=== PATIENT | female | born 1950 | race Caucasian/White ===

== ENCOUNTER → 2024-08-21 11:12 | Outpatient (BNVA) | payer SELFPAY | PROVIDERS: Visit Provider Nurse Practitioner Family | DX: I10 Essential (primary) hypertension (principal); R53.83 Other fatigue; E78.5 Hyperlipidemia, unspecified | CPT/HCPCS: 80053; 80061; 84443; 85025 ==

== ENCOUNTER 2024-09-19 12:26 | Outpatient (CLI) | payer MEDICARE, SELFPAY ==
--- NOTE | 2024-09-19 13:20 | MM_ITS ---
WS: [id number] Bilateral screening 3D tomosynthesis digital mammogram, 09/19/2024 12:52 PM Clinical Data: Z12.39 - Encounter for other screening for malignant neop... Comparison: None. Findings: No spiculated masses or clustered calcifications are seen. There are no secondary signs of carcinoma. The breasts show fibroglandular tissue. There are lymph nodes in the left axilla. MM/MM scr BI tomosynthesis [id number] Impression: Negative bilateral mammogram with no prior exam for review. Recommend annual screening mammograms. BIRADS: 1 - Negative. FOLLOW UP: 1 Year Follow-up DENSITY: There are scattered areas of fibroglandular density. The CAD cylinder checker was used
== END 2024-09-19 12:27 | disposition home or self-care (01) ==
LOC: RAD 12:29
PROVIDERS: Visit Provider Nurse Practitioner Family
DX: Z12.31 Encounter for screening mammogram for malignant neoplasm of breast (principal); R92.323 Mammographic fibroglandular density, bilateral breasts; R59.0 Localized enlarged lymph nodes
CPT/HCPCS: 77063; 77067

== ENCOUNTER 2024-10-26 09:06 | Observation (INO) | payer MEDICARE, SELFPAY ==
[2024-10-26] VITALS (14 sets, daily range): BP systolic 121–175; BP diastolic 66–91; PULSE 71–97; RESP 15–22; TEMP 36.3–37.1; O2SAT 98–100; BMI 29.0; BMI 29.7
--- NOTE | 2024-10-26 09:10 | ECG_ITS ---
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 Measurements Intervals [place] Rate: 85 P: 146 RI: 124 QRS: 148 QRSD: 124 T: 4 QT: 386 QTc: 460 Interpretive Statements SINUS RHYTHM RIGHT BUNDLE BRANCH BLOCK [120+ ms QRS DURATION, UPRIGHT V1, 40+ ms S IN I/aVL/V4/V5/V6] LEFT POSTERIOR FASCICULAR BLOCK [QRS AXIS > 109, INFERIOR Q] No previous ECG available for comparison Electronically Signed On 10-27-2024 13:08:42 CDT by Robbin Rader M.D. [id number]
--- NOTE | 2024-10-26 09:15 | XR_ITS ---
WS: [id number] Exam: XR chest 1V portable [id number] Date/Time of Exam: 10/26/2024 9:30 AM Reason For Exam: palpitations No priors. The lungs are fully expanded and clear. Normal cardiomediastinal silhouette. Regional bony elements appear normal. XR/XR chest 1V portable [id number] IMPRESSION: 1. Negative chest.
--- NOTE | 2024-10-26 09:42 | ED_ITS ---
HPI - Arrhythmia/Palpitations 2 General: Chief Complaint: Arrhythmia/Palpitations Stated Complaint: palpitations - weakness Time Seen by Provider: 10/26/24 09:11 History of Present Illness: 74-year-old female with a history of hyp erlipidemia and no other medical problems who presents emergency room after having an episode of severe weakness and palpitations this morning. She said overnight she had a couple small episodes of palpitations but when she went to the bathroom this morning she sat on the toilet and became so weak she could not get up. EMS reports her heart rate was in the 200s. They gave some diltiazem and now her heart rate is normalized and she is now symptom-free. She has no cardiac history. No A-fib history. Related Data Home Medications ?Medication ?Instructions ?Recorded ?Confirmed latanoprost (PF) 0.005 % eye drops 1 drp ophthalmic (e ye) QPM 10/26/24 10/26/24 in a dropperette Previous Rx's ?Medication ?Instructions ?Recorded atorvastatin 10 mg tablet (Lipitor) 10 mg PO DAILY #90 tabs 08/21/24 Allergies Allergy/AdvReac Type Severity Reaction Status Date / Time doxycycline Allergy Unknown Verified 08/21/24 10:26 Review of Systems 2 Narrative: Constitutional symptoms: Negative except as documented in HPI. Skin symptoms: Negative except as documented in HPI. Eye symptoms: Negative except as documented in HPI. ENMT symptoms: Negative except as documented in HPI. Respiratory symptoms: Negative except as documented in HPI. Cardiovascular symptoms: Negative except as documented in HPI. Gastrointestinal symptoms: Negative except as documented in HPI. Genitourinary symptoms: Negative except as documented in HPI. Musculoskeletal symptoms: Negative except as documented in HPI. Neurologic symptoms: Negative except as documented in HPI. Psychiatric symptoms: Negative except as documented in HPI. Endocrine symptoms: Negative except as documented in HPI. PFSH ED 2 PFSH: Medical History Hyperlipemia Family History Grandmother Cancer Sister Cancer Father Cancer Mother Diabetes mellitus, type 2 Hypertension Heart disease Brother Heart disease Social History Smoking and tobacco/nicotine status: never used tobacco/nicotine Alcohol intake: never Substance/Drug Use: never Adopted: No Caregiver/support person: No Lives independently: No Household members: family service: No Current occupational status: retired and disabled Do you think of yourself as: Straight/Heterosexual Current gender identity: Female Physical Exam 2 Narrative: EXAM NARRATIVE: General: Alert, no acute distress. Skin: Warm, dry. Head: Normocephalic, atraumatic. Neck: Supple, trachea midline. Eye: Extraocular movements are intact. Ears, nose, mouth and throat: mucosa moist. Cardiovascular: Regular, Normal peripheral perfusion. Respiratory: Lungs are clear to auscultation, respirations are non-labored, breath sounds are equal, Symmetrical chest wall expansion. Gastrointestinal: Soft, Nontender, Non distended Musculoskeletal: Normal ROM, no deformity. Neurological: Alert and oriented, No focal neurological deficit observed. Psychiatric: Cooperative, appropriate mood & affect. Course 2 Vital Signs: Vital signs: Vital Signs Temperature 98.7 F 10/26/24 09:08 Pulse Rate 74 10/26/24 13:30 Respiratory Rate 18 10/26/24 09:08 Blood Pressure 136/75 10/26/24 13:30 Pulse Oximetry 100 10/26/24 13:30 Oxygen Delivery Me thod Room Air 10/26/24 13:30 MDM - Arrhythmia/Palpitations Medical Decision Making Medical decision making: Differential diagnosis for patient presenting with generalized weakness including but not limited to and based on the above HPI, review of systems and physical exam: Sepsis. Dehydration. Renal failure. Electrolyte abnormalities. Anemia. Congestive heart failure. Hypotension. Coronary syndrome. Hepatitis. Cirrhosis. Infections such as pneumonia, urinary tract infection, Tick bourne illness, Cellulitis, Viral infections including influenza and Covid-19. Workup: labwork and lab/exam driven imaging ordered to evaluate, rule in and rule out above pathologies. EKG/cardiac monitoring in the field: Appears to be in atrial fibrillation with rapid ventricular response on EMS field tracing. See picture below. EKG: Time 9:10 AM. Rate 85. Normal sinus rhythm, No ST-T changes, no ectopy, left anterior fascicular block, right bundle branch block, This was reviewed and interpreted by myself the ER physician at 9:15 AM Lab Review: Laboratory results were reviewed and interpreted by myself the emergency room physician. Lab work is fairly unremarkable. Mild leukocytosis. No anemia. No renal failure. TSH is normal. No urinary tract infection. Initial troponin is negative. proBNP is mildly elevated at 305. I reviewed the patient's medical record. Reexamination: Patient has remained in sinus rhythm while she has been here. No syncope. No shortness of breath. No altered mental status. Consultation: I spoke with Dr. Rader who is on-call for cardiology. He recommends admission for echocardiogram and continue cardiac monitoring. As she has no previous history of atrial fibrillation. Consultation: I spoke with Dr. Cortez who is on-call for the hospitalist service who agrees to admission. Assessment and plan: New onset atrial fibrillation with A-fib with RVR Syncope -I discussed the patient with the hospitalist on-call who is admitting the patient. - Discussed findings and plan with patient. Answered any questions. - All laboratory values were reviewed and interpreted personally by myself, the ER physician - All imaging was reviewed and interpreted personally by myself, the ER physician. - Evaluation and treatment of this problem were appropriate in the emergency setting Lab Data 10/26/24 10:14 10/26/24 10:14 Radiology Impressions Chest X-Ray 10/26/24 09:15 IMPRESSION: 1. Negative chest. Laboratory Results WBC 15.36 10^3/uL (3.29-11.43) H 10/26/24 10:14 RBC 5.11 10^6/uL (3.85-5.65) 10/26/24 10:14 Hgb 14.60 g/dL (11.27-16.99) 10/26/24 10:14 Hct 44.2 % (36-47) 10/26/24 10:14 MCV 86.5 fl (85-98) 10/26/24 10:14 MCH 28.6 pg (27-33) 10/26/24 10:14 MCHC 33.0 g/dL (30-55) 10/26/24 10:14 RDW 12.6 % (12.1-15.1) 10/26/24 10:14 Plt Count 284 10^3/cmm (157-399) 10/26/24 10:14 MPV 9.1 fL (7.4-10.4) 10/26/24 10:14 Neut % (Auto) 85.5 % 10/26/24 10:14 Lymph % (Auto) 10.4 % 10/26/24 10:14 [place] % (Auto) 3.2 % 10/26/24 10:14 Eos % (Auto) 0.2 % 10/26/24 10:14 Baso % (Auto) 0.3 % 10/26/24 10:14 Neut # (Auto) 13.14 10^3/uL (1.8-7.7) H 10/26/24 10:14 Lymph # (Auto) 1.6 10^3/uL (0.8-4.8) 10/26/24 10:14 [place] # (Auto) 0.5 10^3/uL (0.2-0.9) 10/26/24 10:14 Eos # (Auto) 0.0 10^3/uL (0.0-0.8) 10/26/24 10:14 Baso # (Auto) 0.1 10^3/uL (0.0-0.1) 10/26/24 10:14 Nucleated RBC % (auto) 0 % 10/26/24 10:14 Nucleated RBCs # 0.0 /100WBC 10/26/24 10:14 Sodium 144 mmol/L (136-145) 10/26/24 10:14 Potassium 3.9 mmol/L (3.5-5.1) 10/26/24 10:14 Chloride 108 mmol/L (98-107) H 10/26/24 10:14 Carbon Dioxide 23 mmol/L (22-29) 10/26/24 10:14 Anion Gap 16.9 (5-19) 10/26/24 10:14 BUN 10 mg/dL (8-23) 10/26/24 10:14 Creatinine 0.8 mg/dL (0.5-0.9) 10/26/24 10:14 GFR Calculation Not Reportable 10/26/24 10:14 Glucose 117 mg/dL (65-115) H 10/26/24 10:14 Calculated Osmolality 298 mOsm/kg (285-295) H 10/26/24 10:14 Lactic Acid 2.2 mmol/L (0.5-2.2) 10/26/24 10:14 Lactic Acid (Sepsis) 3.6 mmol/L (0.5-2.2) H 10/26/24 13:14 Calcium 9.3 mg/dL (8.5-10.5) 10/26/24 10:14 Magnesium 2.2 mg/dL (1.7-2.3) 10/26/24 10:14 Total Bilirubin 0.5 mg/dL (0.15-1.2) 10/26/24 10:14 AST 19 U/L (0-32) 10/26/24 10:14 ALT 15 U/L (0-33) 10/26/24 10:14 Alkaline Phosphatase 110 U/L (35-105) H 10/26/24 10:14 Troponin T Baseline 9 ng/L (0-10) 10/26/24 10:14 Troponin T 120 Minute 7.40 ng/L (0-10) 10/26/24 11:53 Delta Troponin T -1.60 ABS# (0-10) L 10/26/24 11:53 NT-Pro-B Natriuret Pep 309 pg/mL (0-125) H 10/26/24 10:14 Total Protein 7.0 g/dL (6.6-8.7) 10/26/24 10:14 Albumin 4.1 g/dL (3.5-5.2) 10/26/24 10:14 Globulin 2.9 g/dL (1.3-4.6) 10/26/24 10:14 TSH 1.52 uIU/mL (0.27-4.20) 10/26/24 10:14 Urine Color Yellow (Yellow) 10/26/24 10:55 Urine Appearance Clear (CLEAR) 10/26/24 10:55 Urine pH 7 (5-7) 10/26/24 10:55 Ur Specific [place] 1.005 (1.005-1.030) 10/26/24 10:55 Urine Protein Neg (Negative) 10/26/24 10:55 Urine Glucose (UA) Norm (Normal) 10/26/24 10:55 Urine Ketones 1+ (Negative) H 10/26/24 10:55 Urine Blood Trace (Negative) H 10/26/24 10:55 Urine Nitrate Negative (Negative) 10/26/24 10:55 Urine Bilirubin Neg (Negative) 10/26/24 10:55 Urine Urobilinogen Neg mg/dL (Negative) 10/26/24 10:55 Ur Leukocyte Esterase Negative (Negative) 10/26/24 10:55 Urine RBC 0-2 /hpf (0-2) 10/26/24 10:55 Urine WBC 0-5 /hpf (0-5) 10/26/24 10:55 Ur Squamous Epith Cells 0-5 /hpf (0-5) 10/26/24 10:55 Amorphous Sediment Not Reportable 10/26/24 10:55 Urine Bacteria None seen /hpf (NONE) 10/26/24 10:55 Hyaline Casts 0-4 /lpf H 10/26/24 10:55 Influenza A (PCR) Negative (Negative) 10/26/24 09:26 Influenza Type B (PCR) Negative (Negative) 10/26/24 09:26 RSV (PCR) Negative (Negative) 10/26/24 09:26 SARS-CoV-2 (PCR) Negative (Negative) 10/26/24 09:26 All radiology interpretation(s) finalized by discharge Discharge Plan Discharge Patient Disposition: Placed in Observation Clinical Impression: Atrial fibrillation with rapid ventricular response, Syncope Coding Level of Care Code ED Dressing Machine Operator for Mitzi Restrepo
[2024-10-26 10:11] LABS: Influenza A NEGATIVE (Negative); Influenza B NEGATIVE (Negative); Respiratory Syncytial Virus Ce NEGATIVE (Negative); SARS-CoV-2 PCR NEGATIVE (Negative)
[2024-10-26 10:19] LABS: Basophils # 0.1 10^3/uL (0.0-0.1); Basophils % 0.3 %; Eosinophils % 0.2 %; Hematocrit 44.2 % (36-47); Lymphocytes # 1.6 10^3/uL (0.8-4.8); Lymphocytes % 10.4 %; Mean Corpuscular Hemoglobin 28.6 pg (27-33); Mean Corpuscular Volume 86.5 fl (85-98); Mean Platelet Volume 9.1 fL (7.4-10.4); Monocytes # 0.5 10^3/uL (0.2-0.9); Monocytes % 3.2 %; Neutrophils # 13.14 10^3/uL (1.8-7.7); Neutrophils % 85.5 %; Nucleated Red Blood Cells % 0 %; Platelet Count 284 10^3/cmm (157-399); Red Blood Count 5.11 10^6/uL (3.85-5.65); Red Cell Distribution Width 12.6 % (12.1-15.1); White Blood Count 15.36 10^3/uL (3.29-11.43)
[2024-10-26 10:37] LABS: Troponin(5th) Baseline 9 ng/L (0-10)
[2024-10-26 10:41] LABS: Lactic Sepsis W/Reflex 2.2 mmol/L (0.5-2.2)
[2024-10-26 10:51] LABS: Alanine Aminotransferase 15 U/L (0-33); Albumin Level 4.1 g/dL (3.5-5.2); Alkaline Phosphatase 110 U/L (35-105); Anion Gap 16.9 (5-19); Aspartate Amino Transferase 19 U/L (0-32); Blood Urea Nitrogen 10 mg/dL (8-23); Calcium 9.3 mg/dL (8.5-10.5); Carbon Dioxide 23 mmol/L (22-29); Chloride 108 mmol/L (98-107); Creatinine Clr Calc Pharmacy 78.0204; Globulin 2.9 g/dL (1.3-4.6); Glucose 117 mg/dL (65-115); Magnesium 2.2 mg/dL (1.7-2.3); NT Pro B Type Natriuretic Pept 309 pg/mL (0-125); Osmolality Calculated 298 mOsm/kg (285-295); Potassium 3.9 mmol/L (3.5-5.1); Sodium 144 mmol/L (136-145); Thyroid Stimulating Hormone 1.52 uIU/mL (0.27-4.20); Total Bilirubin 0.5 mg/dL (0.15-1.2)
[2024-10-26 11:02] LABS: Reflex Lactate Order REFLEX LACTIC ORDERD
[2024-10-26 11:08] LABS: Bacteria Urine None Seen /hpf; Hyaline Casts Urine 0-4 /lpf; RBC Urine 0-2 /hpf (0-2); Squamous Epithelial Cell Urine 0-5 /hpf (0-5); WBC Urine 0-5 /hpf (0-5)
[2024-10-26 11:12] LABS: Specific Gravity, Urine 1.005 (1.005-1.030); Urine Appearance Clear (CLEAR); Urine Color Yellow (Yellow); pH Urine 7 (5-7)
[2024-10-26 11:13] LABS: Bilirubin Urine Neg (Negative); Blood Urine Trace (Negative); Glucose Urine UA Norm (Normal); Ketones Urine 1+ (Negative); Leukocyte Esterase Urine Negative (Negative); Nitrate Urine Negative (Negative); Protein Urine Neg (Negative); Urobilinogen Urine Neg (Negative)
--- NOTE | 2024-10-26 11:16 | ECG_ITS ---
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 Measurements Intervals [place] Rate: 80 P: 47 CT: 120 QRS: 53 QRSD: 133 T: 39 QT: 401 QTc: 463 Interpretive Statements SINUS RHYTHM RIGHT BUNDLE BRANCH BLOCK [120+ ms QRS DURATION, UPRIGHT V1, 40+ ms S IN I/aVL/V4/V5/V6] Compared to ECG 10/26/2024 09:10:49 Left posterior fascicular block no longer present Electronically Signed On 10-27-2024 13:21:30 CDT by Robbin Rader M.D. [email or web address] [id number]
[2024-10-26 13:42] LABS: Lactic Acid level (Lactate) 3.6 mmol/L (0.5-2.2)
--- NOTE | 2024-10-26 14:23 | USCV_ITS ---
Gera Kristyn Age: 74 Gender: F : 1950 Exam Date: 10/26/2024 17:53 Ordering Phys: Francis Bryan MD Technologist: LASHELL [place]am [place] [facility] [place]ication: sob BP: 175 / 88 HR: 79 Rhythm: Sinus Technical Quality: MEASUREMENTS (Male / Female) Normal Values 2D ECHO LV Diastolic Diameter PLAX 3.4 cm 4.2 - 5.9 / 3.9 - 5.3 cm IVS Diastolic Thickness 1.2 cm 0.6 - 1.0 / 0.6 - 0.9 cm IVS Systolic Thickness 1.7 cm LVPW Diastolic Thickness 1.6 cm 0.6 - 1.0 / 0.6 - 0.9 cm LVPW Systolic Thickness 1.8 cm LVOT Diameter 2.1 cm LV Ejection Fraction 2D Teich 87.1 % LV Ejection Fraction MOD 4C 67.9 % LV Ejection Fraction MOD 2C 67.6 % LV Ejection Fraction 2C AL 68.7 % LA Diameter 3.3 cm RA Systolic Volume 4C AL 23.6 ml RA Systolic Volume 4C MOD 24.2 ml LA Sys Volume AL 30.4 cm cubed LA Sys Volume Index AL 20.1 cm cubed/m squared Aorta at Sinotubular Diameter 2.3 cm IVC Diameter 1.3 cm M-MODE LA Ao Ratio MM 1.6 AV Cusp Separation MM 1.7 cm DOPPLER AV Peak Velocity 133.0 cm/s LVOT Peak Velocity 102.0 cm/s AV Area Cont Eq vti 2.8 cm squared AV Area Cont Eq pk 2.6 cm squared MV Peak Velocity 117.0 cm/s MV Area PHT 4.4 cm squared Mitral E to A Ratio 0.7 TR Peak Velocity 260.0 cm/s TR Peak Gradient 27.0 mmHg TR Mean Velocity 202.0 cm/s TR Mean Gradient 18.1 mmHg TR Velocity Time Integral 77.3 cm PV Peak Velocity 108.0 cm/s RV Ejection Time 0.3 s FINDINGS Left Ventricle Normal left ventricular size and systolic function, EF 68%. Mild concentric left ventricular hypertrophy.no regional wall motion abnormalities. Grade I/IV diastolic dysfunction (abnormal relaxation filling pattern), normal to mildly elevated filling pressures. Right Ventricle The right ventricle is normal in size and function. Right Atrium The right atrium is normal in size. Left Atrium The left atrium is normal in size. Mitral Valve No gross abnormalities noted Aortic Valve No gross abnormalities noted Tricuspid Valve Trace to mild tricuspid valve regurgitation. Estimated pulmonary artery peak systolic pressure possibly within normal limit Pulmonic Valve Trace pulmonary valve regurgitation. Pericardium Normal pericardium without effusion. Aorta Normal aortic annulus size. IVC Inferior vena cava not visualized. CONCLUSIONS Normal left ventricular size and systolic function, EF 68%. Mild concentric left ventricular hypertrophy.no regional wall motion abnormalities. Grade I/IV diastolic dysfunction (abnormal relaxation filling pattern), normal to mildly elevated filling pressures. Trace to mild tricuspid valve regurgitation. Trace pulmonary valve regurgitation. Estimated pulmonary artery peak systolic pressure possibly within normal limits. No similar previous studies are available for comparison Dr Robbin Rader MD FACC (Electronically Signed) Final Date: 26 October 2024 18:28 S
--- NOTE | 2024-10-26 14:23 | PM.HP ---
Providers/Chief Complaint Primary Care Provider: OCTAVIA Easton Chief Complaint: palpitations - weakness History of Present Illness Kristyn Boss is a 74 year old female with a past medical history of hyperlipidemia, congenital retinal detachment, legally blind, cannot take any blood thinners or even aspirin due to history of retinal bleeding, who presents [facility] for palpitations. Patient tells me that she is in good health, she is originally from [place], she moved to [facility] to be with her sister who helps her as she is legally blind, denies any cardiovascular history, no history of diabetes, no history of smoking, no history of drug use, who presents [facility] who presents [facility] due to palpitations. She does reports episodes of palpitations and weakness this morning no headache, no blurry vision, no strokelike symptoms, no facial droop, heart rates were in the 200s when EMS arrived, she was given diltiazem Review of Systems Card: Reports: palpitations Resp: Denies: dyspnea Medications/Allergies Home Medications ?Medication ?Instructions ?Recorded ?Confirmed ?Last Taken ?Type atorvastatin 10 mg tablet (Lipitor) 10 mg PO DAILY #90 tabs 08/21/24 10/26/24 10/25/24 20:00 Rx latanoprost (PF) 0.005 % eye drops 1 drp ophthalmic (eye) QPM 10/26/24 10/26/24 10/25/24 History in a dropperette Allergies Allergy/AdvReac Type Severity Reaction Status Date / Time doxycycline Allergy Unknown Verified 08/21/24 10:26 PFSH Acute PFSH: Medical History Hyperlipemia Family History Grandmother Cancer Sister Cancer Father Cancer Mother Diabetes mellitus, type 2 Hypertension Heart disease Brother Heart disease Social History Smoking and tobacco/nicotine status: never used tobacco/nicotine Alcohol intake: never Substance/Drug Use: never Adopted: No Caregiver/support person: No Lives independently: No Household members: family service: No Current occupational status: retired and disabled Do you think of yourself as: Straight/Heterosexual Current gender identity: Female Vitals/I&O/Wt Last Vital Signs Temp 98.7 F 10/26/24 09:08 Pulse 74 10/26/24 13:30 Resp 18 10/26/24 09:08 BP 136/75 10/26/24 13:30 Pulse Ox 100 10/26/24 13:30 O2 Del Method Room Air 10/26/24 13:30 Weight last 48 hrs Weight 91.626 kg Physical Exam Const: COMMON NORMALS: no acute distress and patient oriented x3 HENMT: COMMON NORMALS: normocephalic HEAD & SCALP: normocephalic Neck/C-Spine: COMMON NORMALS: no JVD Lymph: LYMPHATIC: no lymphadenopathy noted Resp: COMMON NORMALS: normal respiratory effort, No retractions, No use of accessory muscles and clear to auscultation bilaterally AUSCULTATION: clear to auscultation bilaterally Cardio: COMMON NORMALS: no JVD, regular rate, regular rhythm, S1 normal heart sound present and S2 normal heart sound present RATE: regular rate RHYTHM: regular rhythm HEART SOUNDS: S1 normal heart sound present and S2 normal heart sound present GI: COMMON NORMALS: Normal to inspection, nondistended, normoactive bowel sounds present, Soft to palpation and non-tender Extremity: COMMON NORMALS: no calf tenderness and no pedal edema OTHER: Bilateral eye blindness, Right eye, pupillary defect Neuro: COMMON NORMALS: patient oriented x3, CN's II-XII intact bilaterally and moves all extremities Psych: COMMON NORMALS: mental status grossly normal Data 10/26/24 10:14 10/26/24 10:14 A&P Assessment and plan (1) Atrial fibrillation with rapid ventricular response: (2) Fatigue: (3) Leukocytosis: Plan A-fib with RVR - Currently normal sinus rhythm - Serial troponins, serial EKGs, telemetry monitoring, cardiac echo - TSH, A1c - We discussed risks and benefits of anticoagulant therapy, he voiced understanding, all questions answered, shared decision making, increased risk of stroke discussed, however patient declines anticoagulant therapy and aspirin for now due to concerns for retinal bleeding which she has had a history of, but tells me that she will talk to Dr. Mohr in the near future - Metoprolol 25 twice daily Leukocytosis, elevated lactic acid - UA within normal limits - Chest x-ray within normal limits - Perhaps reactive secondary to A-fib with RVR, monitor Patient is DNR, is agreeable to elective intubation if required SCDs for DVT prophylaxis PDMP PDMP Reviewed: Not Reviewed Attestations Medical Necessity Statement*: Patient requires hospitalization, outpatient observation, for A-fib with RVR Diagnoses Atrial fibrillation with rapid ventricular response I48.91 Fatigue R53.83 Leukocytosis D72.829
[2024-10-26] MEDS: pantoprazole 40 mg SDV IVP (16:00)
--- NOTE | 2024-10-26 16:00 | PC.NURSE ---
received from ER Pt received from ER. Pt is alert,orientedx4. Denies any pain or dizziness. Telemetry shows sinus rhythm w/ heart rate between 70s to 80s. call light provided to pt. oriented pt on how to use call light. table and telephone within reach.
[2024-10-26 16:14] LABS: Estmated Average Glucose 103; Hemoglobin A1C 5.2 % (4.0-6.0)
[2024-10-26 16:56] LABS: Troponin 5 6HR 8.36 ng/L (0-10)
[2024-10-26 16:57] LABS: Troponin 5 6HR Delta -0.64 ng/L (0-12)
[2024-10-26] MEDS: metoprolol tartrate 25 mg Tablet PO (17:16)
--- NOTE | 2024-10-26 17:38 | ECG_ITS ---
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 Measurements Intervals [place] Rate: 84 P: 48 GA: 133 QRS: 17 QRSD: 129 T: 3 QT: 398 QTc: 472 Interpretive Statements SINUS RHYTHM RIGHT BUNDLE BRANCH BLOCK [120+ ms QRS DURATION, UPRIGHT V1, 40+ ms S IN I/aVL/V4/V5/V6] POSSIBLE ANTERIOR MYOCARDIAL INFARCTION , OF INDETERMINATE AGE [30 ms Q WAVE IN V3/V4, OR R < 0.2 mV IN V4] Compared to ECG 10/26/2024 11:04:12 Myocardial infarct finding now present Electronically Signed On 10-27-2024 13:16:31 CDT by Robbin Rader M.D. [email or web address] [id number]
[2024-10-26] MEDS: ATORVASTATIN 10 MG TABLET PO (21:21)
[2024-10-26] MEDS: latanoprost 0.005% Op Soln 2.5 mL Btl 1 DROP EYE-BOTH (21:21)
[2024-10-27 02:42] LABS: Basophils # 0.1 10^3/uL (0.0-0.1); Basophils % 0.5 %; Eosinophils # 0.2 10^3/uL (0.0-0.8); Eosinophils % 2.3 %; Hematocrit 40.9 % (36-47); Lymphocytes # 3.1 10^3/uL (0.8-4.8); Lymphocytes % 33.4 %; Mean Corpuscular HGB Conc 32.5 g/dL (30-55); Mean Corpuscular Hemoglobin 28.4 pg (27-33); Mean Corpuscular Volume 87.2 fl (85-98); Mean Platelet Volume 9.4 fL (7.4-10.4); Monocytes # 0.7 10^3/uL (0.2-0.9); Monocytes % 7.2 %; Neutrophils # 5.17 10^3/uL (1.8-7.7); Neutrophils % 56.3 %; Nucleated Red Blood Cells % 0 %; Platelet Count 245 10^3/cmm (157-399); Red Blood Count 4.69 10^6/uL (3.85-5.65); Red Cell Distribution Width 12.8 % (12.1-15.1); White Blood Count 9.19 10^3/uL (3.29-11.43)
[2024-10-27 03:01] LABS: Alanine Aminotransferase 12 U/L (0-33); Albumin Level 3.8 g/dL (3.5-5.2); Alkaline Phosphatase 93 U/L (35-105); Anion Gap 13.7 (5-19); Aspartate Amino Transferase 16 U/L (0-32); Blood Urea Nitrogen 11 mg/dL (8-23); Calcium 9.2 mg/dL (8.5-10.5); Carbon Dioxide 24 mmol/L (22-29); Chloride 108 mmol/L (98-107); Creatinine Clr Calc Pharmacy 70.1606; Globulin 2.9 g/dL (1.3-4.6); Glucose 104 mg/dL (65-115); Magnesium 2.3 mg/dL (1.7-2.3); Osmolality Calculated 294 mOsm/kg (285-295); Phosphorus 3.8 mg/dL (2.5-4.5); Potassium 3.7 mmol/L (3.5-5.1); Sodium 142 mmol/L (136-145); Total Bilirubin 0.8 mg/dL (0.15-1.2); Total Protein 6.7 g/dL (6.6-8.7)
[2024-10-27 04:00] VITALS: BP 127/65; PULSE 75; RESP 20; TEMP 37.1; O2SAT 98
[2024-10-27] MEDS: metoprolol tartrate 25 mg Tablet PO (06:24)
[2024-10-27 07:14] VITALS: BP 101/67; PULSE 62; RESP 23; TEMP 36.8; O2SAT 98
--- NOTE | 2024-10-27 09:14 | PC.NURSE ---
Patient ambulated in the [place] ~250ft with full contact assist due to blindness. Patient tolerated very well. Heart rate maintained NSR with rate 85-90s. Telemetry does indicate a left bundle branch block. Patient denies palpitations or dizziness. Will continue to monitor. MD in to see patient and discussed new medications and potential discharge home today. Patient verbalized complete understanding.
[2024-10-27 09:31] LABS: Lactate (Lactic Acid level) 3.1 mmol/L (0.5-2.2)
--- NOTE | 2024-10-27 10:09 | CTR_ITS ---
PROCEDURE INFORMATION: Exam: CT Chest Without Contrast; Diagnostic Exam date and time: 10/27/2024 10:22 AM Age: 74 years old Clinical indication: Abnormal findings; Abnormal lab test; Other: Elevated lactic acid TECHNIQUE: Imaging protocol: Diagnostic computed tomography of the chest without contrast. Radiation optimization: All CT scans at this facility use at least one of these dose optimization techniques: automated exposure control; mA and/or kV adjustment per patient size (includes targeted exams where dose is matched to clinical indication); or iterative reconstruction. COMPARISON: CR XR chest 1V portable [id number] 10/26/2024 9:36 AM RADIATION DOSE METRICS: Total DLP (mGy-cm): 986.52 FINDINGS: Trachea: Trachea is patent. Lungs: Left lower lobe 6 mm calcified granuloma. Right upper lobe calcified granuloma 5 mm. Pleural spaces: Unremarkable. No pneumothorax. No pleural effusion. Heart: Unremarkable. No cardiomegaly. No pericardial effusion. Lymph nodes: Mediastinal shotty lymph nodes. Vasculature: Unremarkable. No aortic aneurysm. Bones/joints: Mild diffuse thoracic spine degenerative changes. Soft tissues: Unremarkable. PROCEDURE INFORMATION: Exam: CT Abdomen And Pelvis Without Contrast Exam date and time: 10/27/2024 10:22 AM Age: 74 years old Clinical indication: Abnormal findings; Abnormal lab test; Other: Elevated lactic acid TECHNIQUE: Imaging protocol: Computed tomography of the abdomen and pelvis without contrast. Radiation optimization: All CT scans at this facility use at least one of these dose optimization techniques: automated exposure control; mA and/or kV adjustment per patient size (includes targeted exams where dose is matched to clinical indication); or iterative reconstruction. COMPARISON: CR XR chest 1V portable [id number] 10/26/2024 9:36 AM RADIATION DOSE METRICS: Total DLP (mGy-cm): 986.82 FINDINGS: Liver: Calcified granulomas in the liver and spleen. Gallbladder and biliary ducts: Normal. No calcified stones. No ductal dilation. Pancreas: Normal. No ductal dilation. Spleen: See Liver finding. Adrenal glands: Normal. No mass. Kidneys and ureters: Normal. No hydronephrosis. Stomach and bowel: No dilated small bowel loop. Appendix: Normal appendix. Intraperitoneal space: Unremarkable. No free air. No significant fluid collection. Vasculature: Mild calcified atherosclerotic changes are seen throughout the abdominal aorta. Lymph nodes: Unremarkable. No enlarged lymph nodes. Urinary bladder: Unremarkable as visualized. Reproductive: Unremarkable as visualized. Bones/joints: Unremarkable. No acute fracture. Soft tissues: Unremarkable. CT/[place] [id number] IMPRESSION: 1. No acute pulmonary finding 2. Mild diffuse thoracic spine degenerative changes. IMPRESSION: 1. No acute abdominal or pelvic inflammatory changes. 2. Mild calcified atherosclerotic changes are seen throughout the abdominal aorta.
[2024-10-27 10:14] LABS: Erythrocyte Sedimentation Rate 4 mm/hr (0-15)
[2024-10-27 10:33] LABS: Procalcitonin 0.05 ng/mL (0-0.5)
--- NOTE | 2024-10-27 11:10 | PM.DCS ---
Discharge Providers Date of Admission: 10/26/24 14:57 Date of Discharge: October 27, 2024 Attending Provider at Admission: Francis Bryan MD Attending Provider at Discharge: Francis Bryan MD Primary Care Provider: OCTAVIA Easton Diagnoses at Discharge Discharge Diagnosis (1) Atrial fibrillation with rapid ventricular response: Status: Acute (2) Fatigue: Status: Acute (3) Leukocytosis: Status: Acute Reason for Visit Reason for Visit: palpitations - weakness Hospital Course Hospital Course Kristyn Boss is a 74 year old female with a past medical history of hyperlipidemia, congenital retinal detachment, legally blind, cannot take any blood thinners or even aspirin due to history of retinal bleeding, who presents [facility] for palpitations. Patient tells me that she is in good health, she is originally from [place], she moved to [facility] to be with her sister who helps her as she is legally blind, denies any cardiovascular history, no history of diabetes, no history of smoking, no history of drug use, who presents [facility] who presents [facility] due to palpitations. She does reports episodes of palpitations and weakness this morning no headache, no blurry vision, no strokelike symptoms, no facial droop, heart rates were in the 200s when EMS arrived, she was given diltiazem Patient was admitted to [facility] for A-fib with RVR, remained in normal sinus rhythm throughout her hospitalization, she was manage on Metroprolol 25 twice daily, ambulating without any significant symptomatology, will be discharged on a couple 25 mg twice daily, with close follow-up with cardiology as outpatient CONCLUSIONS Normal left ventricular size and systolic function, EF 68%. Mild concentric left ventricular hypertrophy.no regional wall motion abnormalities. Grade I/IV diastolic dysfunction (abnormal relaxation filling pattern), normal to mildly elevated filling pressures. Trace to mild tricuspid valve regurgitation. Trace pulmonary valve regurgitation. Estimated pulmonary artery peak systolic pressure possibly within normal limits. No similar previous studies are available for comparison - We discussed risks and benefits of anticoagulant therapy, he voiced understanding, all questions answered, shared decision making, increased risk of stroke discussed, however patient declines anticoagulant therapy and aspirin for now due to concerns for retinal bleeding which she has had a history of, but tells me that she will talk to Dr. Mohr in the near future -Patient was advised if she has any strokelike symptoms immediately call 911 -Follow-up with cardiology She was found to have leukocytosis, elevated lactic acid during hospitalization -No significant metabolic acidosis -Likely from dehydration, A-fib -Received fluid therapy -UA within normal limits -Chest x-ray within normal limits -CRP, Pro-Bossman, sed rate within normal limits -CT chest abdomen pelvis no acute findings -She is relatively asymptomatic, no fevers, no cough, no abdominal pain, no chest pain, no shortness of breath, no diarrhea, no dysuria -Patient was advised if she has any recurrent episodes of palpitations, chest pain, shortness of breath, fevers or chills go to medical emergency room Physical Exam Const: COMMON NORMALS: no acute distress and patient oriented x3 Resp: COMMON NORMALS: normal respiratory effort, No retractions, No use of accessory muscles and clear to auscultation bilaterally AUSCULTATION: clear to auscultation bilaterally Cardio: COMMON NORMALS: regular rate, regular rhythm, S1 normal heart sound present and S2 normal heart sound present RATE: regular rate RHYTHM: regular rhythm HEART SOUNDS: S1 normal heart sound present and S2 normal heart sound present GI: COMMON NORMALS: Normal to inspection, nondistended, normoactive bowel sounds present and non-tender Extremity: COMMON NORMALS: no pedal edema Neuro: COMMON NORMALS: patient oriented x3 Psych: COMMON NORMALS: mental status grossly normal Discharge Data Studies Completed and Pending Completed Studies During Hospitalization Category Date Time Status CT chest abdomen pelvis [[place] [id number] Cat Scan 10/27/24 10:09 Completed ] Routine XR chest 1V portable [id number] Stat Exams 10/26/24 09:15 Completed CV. echo complete* [id number] Stat Ultrasound 10/26/24 14:23 Completed Pending at discharge Category Date Time Status Complete Blood Count w/Auto AM LABS Lab 10/28/24 04:00 Ordered Complete Blood Count w/Auto AM LABS Lab 10/29/24 04:00 Ordered Comprehensive Metabolic Panel AM LABS Lab 10/28/24 04:00 Ordered Comprehensive Metabolic Panel AM LABS Lab 10/29/24 04:00 Ordered Magnesium AM LABS Lab 10/28/24 04:00 Ordered Magnesium AM LABS Lab 10/29/24 04:00 Ordered Phosphorus AM LABS Lab 10/28/24 04:00 Ordered Phosphorus AM LABS Lab 10/29/24 04:00 Ordered Radiology Impressions Chest X-Ray 10/26/24 09:15 IMPRESSION: 1. Negative chest. Chest/Abdomen/Pelvis CT 10/27/24 10:09 IMPRESSION: 1. No acute pulmonary finding 2. Mild diffuse thoracic spine degenerative changes. IMPRESSION: 1. No acute abdominal or pelvic inflammatory changes. 2. Mild calcified atherosclerotic changes are seen throughout the abdominal aorta. Laboratory Results WBC 9.19 10^3/uL (3.29-11.43) 10/27/24 02:14 RBC 4.69 10^6/uL (3.85-5.65) 10/27/24 02:14 Hgb 13.30 g/dL (11.27-16.99) 10/27/24 02:14 Hct 40.9 % (36-47) 10/27/24 02:14 MCV 87.2 fl (85-98) 10/27/24 02:14 MCH 28.4 pg (27-33) 10/27/24 02:14 MCHC 32.5 g/dL (30-55) 10/27/24 02:14 RDW 12.8 % (12.1-15.1) 10/27/24 02:14 Plt Count 245 10^3/cmm (157-399) 10/27/24 02:14 MPV 9.4 fL (7.4-10.4) 10/27/24 02:14 Neut % (Auto) 56.3 % 10/27/24 02:14 Lymph % (Auto) 33.4 % 10/27/24 02:14 Burke % (Auto) 7.2 % 10/27/24 02:14 Eos % (Auto) 2.3 % 10/27/24 02:14 Baso % (Auto) 0.5 % 10/27/24 02:14 Neut # (Auto) 5.17 10^3/uL (1.8-7.7) 10/27/24 02:14 Lymph # (Auto) 3.1 10^3/uL (0.8-4.8) 10/27/24 02:14 Burke # (Auto) 0.7 10^3/uL (0.2-0.9) 10/27/24 02:14 Eos # (Auto) 0.2 10^3/uL (0.0-0.8) 10/27/24 02:14 Baso # (Auto) 0.1 10^3/uL (0.0-0.1) 10/27/24 02:14 Nucleated RBC % (auto) 0 % 10/27/24 02:14 Nucleated RBCs # 0.0 /100WBC 10/27/24 02:14 ESR 4 mm/hr (0-15) 10/27/24 08:59 Sodium 142 mmol/L (136-145) 10/27/24 02:14 Potassium 3.7 mmol/L (3.5-5.1) 10/27/24 02:14 Chloride 108 mmol/L (98-107) H 10/27/24 02:14 Carbon Dioxide 24 mmol/L (22-29) 10/27/24 02:14 Anion Gap 13.7 (5-19) 10/27/24 02:14 BUN 11 mg/dL (8-23) 10/27/24 02:14 Creatinine 0.9 mg/dL (0.5-0.9) 10/27/24 02:14 GFR Calculation Not Reportable 10/27/24 02:14 Glucose 104 mg/dL (65-115) 10/27/24 02:14 Estimat Average Glucose 103 10/26/24 10:14 Hemoglobin A1c 5.2 % (4.0-6.0) 10/26/24 10:14 Calculated Osmolality 294 mOsm/kg (285-295) 10/27/24 02:14 Lactic Acid 2.2 mmol/L (0.5-2.2) 10/26/24 10:14 Lactic Acid (Sepsis) 3.6 mmol/L (0.5-2.2) H 10/26/24 13:14 Lactate 3.1 mmol/L (0.5-2.2) H 10/27/24 08:59 Calcium 9.2 mg/dL (8.5-10.5) 10/27/24 02:14 Phosphorus 3.8 mg/dL (2.5-4.5) 10/27/24 02:14 Magnesium 2.3 mg/dL (1.7-2.3) 10/27/24 02:14 Total Bilirubin 0.8 mg/dL (0.15-1.2) 10/27/24 02:14 AST 16 U/L (0-32) 10/27/24 02:14 ALT 12 U/L (0-33) 10/27/24 02:14 Alkaline Phosphatase 93 U/L (35-105) 10/27/24 02:14 Troponin T Baseline 9 ng/L (0-10) 10/26/24 10:14 Troponin T 120 Minute 7.40 ng/L (0-10) 10/26/24 11:53 Delta Troponin T -1.60 ABS# (0-10) L 10/26/24 11:53 Troponin T Hi Sens 6Hr 8.36 ng/L (0-10) 10/26/24 16:17 Troponin T Hi Sens 6Hr Delta -0.64 ng/L (0-12) L 10/26/24 16:17 C-Reactive Protein 3.0 mg/L (0.0-4.9) 10/27/24 08:59 NT-Pro-B Natriuret Pep 309 pg/mL (0-125) H 10/26/24 10:14 Total Protein 6.7 g/dL (6.6-8.7) 10/27/24 02:14 Albumin 3.8 g/dL (3.5-5.2) 10/27/24 02:14 Globulin 2.9 g/dL (1.3-4.6) 10/27/24 02:14 Procalcitonin 0.05 ng/mL (0-0.5) 10/27/24 08:59 TSH 1.50 uIU/mL (0.27-4.20) 10/26/24 10:14 TSH 1.52 uIU/mL (0.27-4.20) 10/26/24 10:14 Urine Color Yellow (Yellow) 10/26/24 10:55 Urine Appearance Clear (CLEAR) 10/26/24 10:55 Urine pH 7 (5-7) 10/26/24 10:55 Ur Specific [place] 1.005 (1.005-1.030) 10/26/24 10:55 Urine Protein Neg (Negative) 10/26/24 10:55 Urine Glucose (UA) Norm (Normal) 10/26/24 10:55 Urine Ketones 1+ (Negative) H 10/26/24 10:55 Urine Blood Trace (Negative) H 10/26/24 10:55 Urine Nitrate Negative (Negative) 10/26/24 10:55 Urine Bilirubin Neg (Negative) 10/26/24 10:55 Urine Urobilinogen Neg mg/dL (Negative) 10/26/24 10:55 Ur Leukocyte Esterase Negative (Negative) 10/26/24 10:55 Urine RBC 0-2 /hpf (0-2) 10/26/24 10:55 Urine WBC 0-5 /hpf (0-5) 10/26/24 10:55 Ur Squamous Epith Cells 0-5 /hpf (0-5) 10/26/24 10:55 Amorphous Sediment Not Reportable 10/26/24 10:55 Urine Bacteria None seen /hpf (NONE) 10/26/24 10:55 Hyaline Casts 0-4 /lpf H 10/26/24 10:55 Influenza A (PCR) Negative (Negative) 10/26/24 09:26 Influenza Type B (PCR) Negative (Negative) 10/26/24 09:26 RSV (PCR) Negative (Negative) 10/26/24 09:26 SARS-CoV-2 (PCR) Negative (Negative) 10/26/24 09:26 Vitals Last Vital Signs Temp 98.3 F 10/27/24 07:14 Pulse 62 10/27/24 07:14 Resp 23 H 10/27/24 07:14 BP 101/67 10/27/24 07:14 Pulse Ox 98 10/27/24 07:14 O2 Del Method Room Air 10/27/24 07:14 Discharge Plan Discharge Patient Disposition: Home Condition: Stable Prescriptions: New metoprolol tartrate 25 mg Tablet 25 mg PO Q12H 30 Days Qty: 60 0RF Continued atorvastatin [Lipitor] 10 mg tablet 10 mg PO DAILY Qty: 90 1RF latanoprost (PF) 0.005 % Dropperette 1 drp OPHTHALMIC (EYE) QPM Discharge Orders: Discharge Order (Routine); Ordered 10/27/24 Ordered By: Francis Bryan Referrals: Lizette Huang, [employer] [Primary Care Provider] - (We have notified your physician's clinic of the need for a follow-up appointment to be scheduled. If you have not heard from them within the next 2 business days, please call them directly. ) Michelle Quinteros MD [Physician] - 1 week Discharge Diet: Cardiac Discharge Activity: Resume usual activity Patient Instructions: Opioid Safety Activity Restrictions/Additional Instructions: - If any lightheadedness or dizziness please go to emergency room - If any fevers, cough, chills please go to the emergency room - If any strokelike symptoms go to the emergency room Discharge Attestations Time Spent in Discharge Care*: greater than 30 min Quality Metrics Clinical Quality Measures [ No reported AMI, CVA or VTE this stay] Coding Level of Care Code 04493 Total time (in minutes) for Discharge: 45 Diagnoses Atrial fibrillation with rapid ventricular response I48.91 Fatigue R53.83 Leukocytosis D72.829
[2024-10-27] MEDS: lactated ringers 500 ML 999 ML IV (11:15)
[2024-10-27 11:27] VITALS: BP 132/80; PULSE 76; RESP 22; TEMP 36.6; O2SAT 98
--- NOTE | 2024-10-27 11:56 | PC.NURSE ---
Fluids complete per MDs orders.
--- NOTE | 2024-10-27 12:22 | PC.NURSE ---
Patient discharged to home after fluid bolus. Instruction provided to patient and her sister regarding follow up needs and medication changes. Both verbalized complete understanding. Patient denies pain, needs or palpitations. No distress observed. patient taken by wheelchair to private vehicle with sister to provide transportation.
[2024-10-27 12:23] VITALS: BP 132/80; PULSE 76; RESP 22; O2SAT 98
== END 2024-10-27 12:25 | disposition home or self-care (01) ==
LOC: ER 14:27 → CSU 14:57
PROVIDERS: Admitting Provider Family Medicine; Emergency Provider Emergency Medicine; PCP Nurse Practitioner Family; Visit Provider Family Medicine
DX: I48.20 Chronic atrial fibrillation, unspecified (principal); H33.20 Serous retinal detachment, unspecified eye; H54.8 Legal blindness, as defined in USA; D72.829 Elevated white blood cell count, unspecified; R53.83 Other fatigue; E78.5 Hyperlipidemia, unspecified; Z66 Do not resuscitate; E86.0 Dehydration
CPT/HCPCS: 36415; 71045; 71250; 74176; 80053; 81001; 83036; 83605; 83735; 83880; 84100; 84145; 84443; 84484; 85025; 85651; 86140; 87637; 93005; 93306; 94664; 96374; 96376; 99285; A9270; G0378; J2470; J7120; J9999

== ENCOUNTER → 2024-11-08 13:48 | Outpatient (BNVA) | payer MEDICARE, SELFPAY | PROVIDERS: PCP Nurse Practitioner Family; Visit Provider Internal Medicine Cardiovascular Disease | DX: I48.0 Paroxysmal atrial fibrillation (principal); E78.5 Hyperlipidemia, unspecified; R00.2 Palpitations | CPT/HCPCS: 99214 ==

== ENCOUNTER 2024-12-15 17:49 | Emergency (ER) | payer MEDICARE, SELFPAY ==
[2024-12-15 17:59] VITALS: BP 146/82; PULSE 78; RESP 14; TEMP 36.8; O2SAT 98
--- NOTE | 2024-12-15 18:11 | ECG_ITS ---
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 Measurements Intervals [place] Rate: 84 P: 58 VT: 142 QRS: 62 QRSD: 128 T: 31 QT: 395 QTc: 469 Interpretive Statements SINUS RHYTHM RIGHT BUNDLE BRANCH BLOCK [120+ ms QRS DURATION, UPRIGHT V1, 40+ ms S IN I/aVL/V4/V5/V6] Compared to ECG 10/26/2024 17:38:49 Myocardial infarct finding no longer present Electronically Signed On 12-18-2024 11:41:58 CDT by Damián Kathleen M.D. [id number]
--- NOTE | 2024-12-15 18:11 | XRR_ITS ---
PROCEDURE INFORMATION: Exam: XR Chest Exam date and time: 12/15/2024 6:25 PM Age: 74 years old Clinical indication: Pain; Chest pressure; Additional info: Cp TECHNIQUE: Imaging protocol: Radiologic exam of the chest. Views: 1 view. COMPARISON: [place] [id number] 10/27/2024 10:22 AM FINDINGS: Lungs: Lungs are clear. Pleural spaces: There is no pleural effusion or pneumothorax. Heart/Mediastinum: Cardiomediastinal contours are unremarkable. Bones/joints: Bones are unremarkable. XR/XR chest 1V portable [id number] IMPRESSION: No acute findings.
[2024-12-15 19:38] LABS: Basophils # 0.1 10^3/uL (0.0-0.1); Basophils % 0.5 %; Eosinophils # 0.2 10^3/uL (0.0-0.8); Eosinophils % 1.3 %; Hematocrit 45.5 % (36-47); Lymphocytes % 24.6 %; Mean Corpuscular HGB Conc 32.5 g/dL (30-55); Mean Corpuscular Hemoglobin 28.5 pg (27-33); Mean Corpuscular Volume 87.7 fl (85-98); Mean Platelet Volume 9.1 fL (7.4-10.4); Monocytes # 0.7 10^3/uL (0.2-0.9); Monocytes % 5.7 %; Neutrophils # 8.13 10^3/uL (1.8-7.7); Neutrophils % 67.6 %; Nucleated Red Blood Cells % 0 %; Platelet Count 290 10^3/cmm (157-399); Red Blood Count 5.19 10^6/uL (3.85-5.65); Red Cell Distribution Width 12.3 % (12.1-15.1); White Blood Count 12.05 10^3/uL (3.29-11.43)
[2024-12-15 19:52] LABS: Partial Thromboplastin Time 23.2 SECONDS (23.9-36.7)
[2024-12-15 19:56] LABS: Troponin(5th) Baseline < 6 ng/L (0-10)
--- NOTE | 2024-12-15 20:11 | ECG_ITS ---
[facility] [employer] Test Date: 2024-12-15 Pat Name: Kristyn Boss Department: Room: Gender: Female Bmx Rider: Miguel Ángel : 1950 Requested By: Dima Shafer Order Number: [id number] Shanna MD: HUGH RUTH Measurements Intervals [place] Rate: 75 P: 39 KS: 154 QRS: 19 QRSD: 132 T: 0 QT: 418 QTc: 470 Interpretive Statements SINUS RHYTHM INTRAVENTRICULAR CONDUCTION DELAY [130+ ms QRS DURATION] Compared to ECG 12/15/2024 17:55:54 Intraventricular conduction delay now present Right bundle-branch block no longer present Electronically Signed On 12-19-2024 23:01:42 CDT by HUGH RUTH [id number] [id number]
[2024-12-15 20:15] LABS: Alanine Aminotransferase 14 U/L (0-33); Albumin Level 4.3 g/dL (3.5-5.2); Alkaline Phosphatase 119 U/L (35-105); Aspartate Amino Transferase 19 U/L (0-32); Blood Urea Nitrogen 15 mg/dL (8-23); Calcium 9.5 mg/dL (8.5-10.5); Carbon Dioxide 20 mmol/L (22-29); Chloride 103 mmol/L (98-107); Creatinine Clr Calc Pharmacy 69.1895; Glucose 110 mg/dL (65-115); NT Pro B Type Natriuretic Pept 52 pg/mL (0-125); Osmolality Calculated 289 mOsm/kg (285-295); Sodium 139 mmol/L (136-145); Total Bilirubin 0.3 mg/dL (0.15-1.2); Total Protein 7.3 g/dL (6.6-8.7)
[2024-12-15 20:52] VITALS: BP 162/95; PULSE 69; RESP 18; O2SAT 96
--- NOTE | 2024-12-15 22:01 | ED_ITS ---
HPI - Chest Pain 2 General: Chief Complaint: Chest Pain Stated Complaint: chest pain Time Seen by Provider: 12/15/24 20:32 History of Present Illness: This patient is a 74-year-old white female who presents to the emergency department complaining of heat surges through her chest . She is feeling a fluttering sensation. She states it feels similar to when she had episode of atrial fibrillation. Her symptoms been going on for the past 3 days. No specific chest pain or shortness of breath. Associated symptoms: Reports palpitations Related Data Home Medications ?Medication ?Instructions ?Recorded ?Confirmed latanoprost (PF) 0.005 % eye drops 1 drp ophthalmic (e ye) QPM 10/26/24 12/06/24 in a dropperette Previous Rx's ?Medication ?Instructions ?Recorded atorvastatin 10 mg tablet (Lipitor) 10 mg PO DAILY #90 tabs 08/21/24 metoprolol succinate 25 mg 25 mg PO DAILY #90 tabs tablet,extended release 24 hr Allergies Allergy/AdvReac Type Severity Reaction Status Date / Time doxycycline Allergy Unknown Verified 12/06/24 08:52 Review of Systems 2 General: Reports: 10 or more systems reviewed and unremarkable except in HPI and below Card: Reports: palpitations PFSH ED 2 PFSH: Medical History (Updated 12/15/24 @ 22:00 by Tyrell Randhawa MD) Legal blindness Hyperlipemia Surgical History (Updated 12/06/24 @ 09:13 by OCTAVIA Rodriguez) History of eye surgery Hx of elbow surgery Family History Grandmother Cancer Sister Cancer Father Cancer Mother Diabetes mellitus, type 2 Hypertension Heart disease Brother Heart disease Social History Smoking and tobacco/nicotine status: never used tobacco/nicotine Alcohol intake: never Substance/Drug Use: never Adopted: No Caregiver/support person: No Lives independently: No Household members: family service: No Current occupational status: retired and disabled Do you think of yourself as: Straight/Heterosexual Current gender identity: Female Physical Exam 2 Const: COMMON NORMALS: no acute distress, patient oriented x3 and no limitations GENERAL APPEARANCE: cooperative and comfortable HENMT: COMMON NORMALS: normocephalic, atraumatic, Normal nasal mucous membranes and turbinates present, moist oral mucous membranes and oropharynx normal HEAD & SCALP: normal to inspection, normocephalic and atraumatic F YOVANY & SINUS: normal facial exam NOSE: Normal nasal mucous membranes and turbinates present Eye: COMMON NORMALS: Equal, round and reactive pupils present, EOMs intact bilaterally and conjunctivae normal GENERAL EYE: appearance normal, both eyes and all related structures CONJUNCTIVA: Yes conjunctivae normal PUPIL: Yes Equal, round and reactive pupils present Neck/C-Spine: COMMON NORMALS: supple and no JVD Chest: COMMONS NORMALS: normal inspection of the chest Resp: COMMON NORMALS: normal respiratory effort and clear to auscultation bilaterally AUSCULTATION: clear to auscultation bilaterally Cardio: COMMON NORMALS: no JVD, regular rate, regular rhythm, No gallops present (Cardio), No murmurs present (Cardio) and No rub (Cardio) RATE: r egular rate RHYTHM: regular rhythm GI: COMMON NORMALS: Normal to inspection, nondistended, normoactive bowel sounds present, Soft to palpation and non-tender AUSCULTATION: Yes normoactive bowel sounds PALPATION: Yes Soft to palpation : COMMON NORMALS: Yes no CVA tenderness BLADDER/KIDNEY EXAM: Yes no CVA tenderness Back/Pelvis: COMMON NORMALS: no CVA tenderness and thoracic and lumbar spine normal to inspection Extremity: COMMON NORMALS: normal to inspection Neuro: COMMON NORMALS: patient oriented x3 and CN's II-XII intact bilaterally Psych: COMMON NORMALS: mental status grossly normal, Normal thought process present and cooperative THOUGHT PROCESS: Normal thought process present Skin: COMMON NORMALS: no rashes or lesions noted, turgor normal and no jaundice GENERAL SKIN EXAM: no rashes or lesions noted and turgor normal Course 2 Vital Signs: Vital signs: Vital Signs Temperature 98.2 F 12/15/24 17:59 Pulse Rate 69 12/15/24 20:52 Respiratory Rate 18 12/15/24 20:52 Blood Pressure 162/95 12/15/24 20:52 Pulse Oximetry 96 12/15/24 20:52 Oxygen Delivery Me thod Room Air 12/15/24 20:52 MDM - Chest Pain Medical Decision Making EKG revealed normal sinus rhythm with no ST segment abnormalities. Chest x-ray is normal. CBC revealed a white blood cell count of 12.1. CMP was normal. BNP was 52. Troponin less than 6. Patient was asymptomatic in the emergency department. She was reassured. She was discharged in stable condition instructed to follow-up with her mental health program manager. She is wearing an event monitor and is scheduled to turn that in next week. Lab Data 12/15/24 19:32 12/15/24 19:32 Radiology Impressions Chest X-Ray 12/15/24 18:11 IMPRESSION: No acute findings. Laboratory Results WBC 12.05 10^3/uL (3.29-11.43) H 12/15/24 19:32 RBC 5.19 10^6/uL (3.85-5.65) 12/15/24 19:32 Hgb 14.80 g/dL (11.27-16.99) 12/15/24 19:32 Hct 45.5 % (36-47) 12/15/24 19:32 MCV 87.7 fl (85-98) 12/15/24 19:32 MCH 28.5 pg (27-33) 12/15/24 19:32 MCHC 32.5 g/dL (30-55) 12/15/24 19:32 RDW 12.3 % (12.1-15.1) 12/15/24 19:32 Plt Count 290 10^3/cmm (157-399) 12/15/24 19:32 MPV 9.1 fL (7.4-10.4) 12/15/24 19:32 Neut % (Auto) 67.6 % 12/15/24 19:32 Lymph % (Auto) 24.6 % 12/15/24 19:32 Garza % (Auto) 5.7 % 12/15/24 19:32 Eos % (Auto) 1.3 % 12/15/24 19:32 Baso % (Auto) 0.5 % 12/15/24 19:32 Neut # (Auto) 8.13 10^3/uL (1.8-7.7) H 12/15/24 19:32 Lymph # (Auto) 3.0 10^3/uL (0.8-4.8) 12/15/24 19:32 Garza # (Auto) 0.7 10^3/uL (0.2-0.9) 12/15/24 19:32 Eos # (Auto) 0.2 10^3/uL (0.0-0.8) 12/15/24 19:32 Baso # (Auto) 0.1 10^3/uL (0.0-0.1) 12/15/24 19:32 Nucleated RBC % (auto) 0 % 12/15/24 19:32 Nucleated RBCs # 0.0 /100WBC 12/15/24 19:32 PT 12.80 SECONDS (12.1-14.9) 12/15/24 19:32 INR 0.90 (0.8-1.2) 12/15/24 19:32 APTT 23.2 SECONDS (23.9-36.7) L 12/15/24 19:32 Sodium 139 mmol/L (136-145) 12/15/24 19:32 Potassium 4.0 mmol/L (3.5-5.1) 12/15/24 19:32 Chloride 103 mmol/L (98-107) 12/15/24 19:32 Carbon Dioxide 20 mmol/L (22-29) L 12/15/24 19:32 Anion Gap 20.0 (5-19) H 12/15/24 19:32 BUN 15 mg/dL (8-23) 12/15/24 19:32 Creatinine 0.9 mg/dL (0.5-0.9) 12/15/24 19:32 GFR Calculation Not Reportable 12/15/24 19:32 Glucose 110 mg/dL (65-115) 12/15/24 19:32 Calculated Osmolality 289 mOsm/kg (285-295) 12/15/24 19:32 Calcium 9.5 mg/dL (8.5-10.5) 12/15/24 19:32 Total Bilirubin 0.3 mg/dL (0.15-1.2) 12/15/24 19:32 AST 19 U/L (0-32) 12/15/24 19:32 ALT 14 U/L (0-33) 12/15/24 19:32 Alkaline Phosphatase 119 U/L (35-105) H 12/15/24 19:32 Troponin T Baseline < 6 ng/L (0-10) 12/15/24 19:32 NT-Pro-B Natriuret Pep 52 pg/mL (0-125) 12/15/24 19:32 Total Protein 7.3 g/dL (6.6-8.7) 12/15/24 19:32 Albumin 4.3 g/dL (3.5-5.2) 12/15/24 19:32 Globulin 3.0 g/dL (1.3-4.6) 12/15/24 19:32 All radiology interpretation(s) finalized by discharge Discharge Plan Discharge Patient Disposition: Home Clinical Impression: Palpitations Condition: Stable Prescriptions: No Action atorvastatin [Lipitor] 10 mg tablet 10 mg PO DAILY Qty: 90 1RF metoprolol succinate 25 mg tablet extended release 24 hr 25 mg PO DAILY Qty: 90 3RF latanoprost (PF) 0.005 % Dropperette 1 drp OPHTHALMIC (EYE) QPM Discharge Orders: Discharge ED (Routine); Ordered 12/15/24 Ordered By: Tyrell Randhawa Referrals: Lizette Huang FNP [Primary Care Provider, Family Practice] Patient Instructions: Heart Palpitations (DC) Activity Restrictions/Additional Instructions: Follow-up with your mental health program manager as scheduled. Print Language: Icelandic Coding Level of Care Code ED [employer] for Mitzi Restrepo
[2024-12-15 22:17] LABS: Troponin 5 2HR < 6.0 ng/L (0-10); Troponin 5 2HR Delta 0 ABS# (0-10)
== END 2024-12-15 22:12 | disposition home or self-care (01) ==
PROVIDERS: Emergency Medicine; Emergency Provider Emergency Medicine; PCP Nurse Practitioner Family
DX: R00.2 Palpitations (principal); E78.5 Hyperlipidemia, unspecified
CPT/HCPCS: 36415; 71045; 80053; 83880; 84484; 85025; 85610; 85730; 93005; 99285

== ENCOUNTER → 2025-01-15 08:25 | Outpatient (BNVA) | payer MEDICARE, SELFPAY | PROVIDERS: PCP Nurse Practitioner Family; Visit Provider Nurse Practitioner Family | DX: L21.8 Other seborrheic dermatitis (principal); L98.8 Other specified disorders of the skin and subcutaneous tissue; L72.0 Epidermal cyst; D18.01 Hemangioma of skin and subcutaneous tissue; L81.4 Other melanin hyperpigmentation; L57.0 Actinic keratosis | CPT/HCPCS: 17000; 99204 ==

== ENCOUNTER → 2025-02-14 10:04 | Outpatient (BNVA) | payer MEDICARE, SELFPAY | PROVIDERS: PCP Nurse Practitioner Family; Visit Provider Internal Medicine Cardiovascular Disease | DX: E78.5 Hyperlipidemia, unspecified (principal); I48.0 Paroxysmal atrial fibrillation | CPT/HCPCS: 93005; 99214 ==

== ENCOUNTER → 2025-03-05 11:21 | Outpatient (BNVA) | payer MEDICARE, SELFPAY | PROVIDERS: PCP Nurse Practitioner Family; Visit Provider Nurse Practitioner Family | DX: E78.5 Hyperlipidemia, unspecified (principal); I10 Essential (primary) hypertension; R53.83 Other fatigue | CPT/HCPCS: 80053; 80061; 85025 ==

== ENCOUNTER → 2025-05-16 13:02 | Outpatient (BNVA) | payer MEDICARE, SELFPAY | PROVIDERS: PCP Nurse Practitioner Family; Visit Provider Nurse Practitioner Family | DX: L91.0 Hypertrophic scar (principal); L82.1 Other seborrheic keratosis; L98.8 Other specified disorders of the skin and subcutaneous tissue; L72.0 Epidermal cyst; L81.4 Other melanin hyperpigmentation | CPT/HCPCS: 99213 ==

== ENCOUNTER → 2025-05-29 09:15 | Outpatient (BNVA) | payer MEDICARE, SELFPAY | PROVIDERS: PCP Nurse Practitioner Family; Visit Provider Nurse Practitioner Family | DX: I10 Essential (primary) hypertension (principal) | CPT/HCPCS: 80053; 80061 ==